=== PATIENT | female | born 1995 | race Caucasian/White ===

== ENCOUNTER 2019-05-11 02:05 | Emergency (ER) | payer OTHER ==
[2019-05-11 03:07] LABS: BLOOD UREA NITROGEN,BUN 10 mg/dL (7.0-18.0); CARBON DIOXIDE,CO2 27.6 mmol/L (21.0-32.0); CHLORIDE,CL 102 mmol/L (98-107); GLUCOSE RANDOM 109 mg/dL (74-106); POTASSIUM,K 3.4 mmol/L (3.5-5.1); SODIUM,NA 138 mmol/L (136-145)
--- NOTE | 2019-05-11 03:32 | EDM.PDOC ---
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 No history of IVF, denies history of STD or PID. No headaches, changes in vision or hearing, or nipple discharge. Patient had positive home test 3 days ago. Building Services Coordinator: None. M/S/F/SocHx notable for: please see HPI; remainder reviewed with patient and in chart. ROS: Negative constitutional, eye, cardiovascular, pulmonary, GI, , MSK, skin , neurologic, psychiatric, endocrine unless noted in the HPI. Exam HR 81, RR 17, BP 129/86, T 36.0C, SaO2 9 & room air. Gen: pleasant, nontoxic-appearing, resting comfortably in no discernible distress. HEENT: NC, AT, PEERL, EOMI. Resp: Clear to auscultation bilaterally, normal work of breathing, no accessory muscle usage. Card: Regular rate and rhythm with no murmurs, rubs, or gallops, extremities warm and well perfused. GI: Non-tender to palpation, no rebound tenderness or guarding, non-distended : no suprapubic tenderness to palpation, normal female external genitalia, vaginal canal visually normal without lesions, no bleeding or discharge, visually closed cervical os, no adnexal or fundal tenderness to palpation. No CMT. MSK: No visible deformities, strength and tone without visually appreciable deficit. Skin: Normal color with no visible lesions. Neuro: alert and oriented 3, no facial asymmetry, vision and hearing WNL. Psych: Mood and affect appropriate. Labs / Imaging (pertinent): WBC 11.02, HB 13.6, sodium 138, potassium 3.4, hCG 322. UA given negative nitrate, trace occult blood, few epithelial cells, few bacteria. Focused Ultrasound Indication: evaluation with abdominal cramping/pain. Views obtained: Transabdominal sagittal and transabdominal transverse. Findings: no visualized intrauterine , no free fluid. FAST Exam Indication: Evaluate for hemoperitoneum. Exam type: limited cardiac and limited abdomen; initial. Views obtained: Right upper quadrant, left upper quadrant, pelvis, and cardiac Abdomen Findings: Limited abdomen ultrasound without significant free intraperitoneal fluid found. Cardiac Findings: Limited cardiac ultrasound without pericardial effusion.] MDM Previous chart, nursing note, and vitals reviewed. A: 23-year-old at 4w2d gestation by LMP (04/11/19) presents for evaluation 2 days of suprapubic cramping is without vaginal discharge, discomfort, dysuria , urinary frequency, continues to take PO well an pass flatus and stool at baseline. DDx: Ectopic , threatened miscarriage, inevitable miscarriage, complete miscarriage, incomplete miscarriage, missed , vaginal/cervical lesion (including wart, trauma, tumor, ectropion, polyp). Evaluation: the cause of the of the patients cramping is of unclear etiology. The cramping may be due to a threatened a being, ectopic , mild enteritis, or other changes. However, the patients ECG is within appropriate limits for the calculate gestation age, the patient is hemodynamically stable, the discomfort is non-discernible on exam, there is no vaginal bleeding, no free fluid, and the ultrasound is without evidence of abnormality. UA is without evidence of infection, hemoglobin is within normal limits, and the patients vital signs are stable and within normal limits. Patient was recommended to take acetaminophen for discomfort and follow up with PCP and/or FLAT BED KNITTER within 48 hours. Return to care precautions provided. Impression: abdominal pain, first trimester . abdomen Pain Score (Numeric/FACES): 6 - Related Data Allergies Allergy/AdvReac Type Severity Reaction Status Date / Time morphine Allergy Hives Verified 05/11/19 02:25 Penicillins Allergy Hives Verified 05/11/19 02:25 Home Meds: Home Meds Sertraline [Zoloft] 100 mg PO DAILY 05/11/19 [History] Past Medical History HEENT History: Reports: None Genitourinary History: Reports: None - Infectious Disease History Infectious Disease History: Reports: Chicken Pox - Past Surgical History HEENT Surgical History: Reports: Adenoidectomy, Tonsillectomy Female Surgical History: Reports: Salpingo-Oophorectomy, Other (See Below) Other Female Surgeries/Procedures: R salphingooophorectomy Social & Family History - Family History Family Medical History: Noncontributory - Tobacco Use Smoking Status *Q: Never Smoker Second Hand Smoke Exposure: No - Caffeine Use Caffeine Use: Reports: Soda - Recreational Drug Use Recreational Drug Use: No ED ROS GENERAL - Review of Systems Review Of Systems: See Below ED EXAM, GENERAL - Physical Exam Exam: See Below Course - Vital Signs Last Recorded V/S: Last Vital Signs Temp 36.0 C 05/11/19 02:08 Pulse 81 05/11/19 02:08 Resp 17 05/11/19 02:08 BP 129/86 05/11/19 02:08 Pulse Ox 99 05/11/19 02:08 - Orders/Labs/Meds Orders: Active Orders 24 hr Category Date Time Status Pelvic Exam, Set Up [RC] ASDIRECTED Care 05/11/19 02:33 Active Labs: Laboratory Tests 05/11/19 05/11/19 05/11/19 Range/Units 02:18 02:35 02:35 WBC 11.02 H (4.0-11.0) K/uL RBC 4.63 (4.30-5.90) M/uL Hgb 13.6 (12.0-16.0) g/dL Hct 39.2 (36.0-46.0) % MCV 84.7 (80.0-98.0) fL MCH 29.4 (27.0-32.0) pg MCHC 34.7 (31.0-37.0) g/dL RDW Std Deviation 40.3 (28.0-62.0) fl RDW Coeff of Jose 13 (11.0-15.0) % Plt Count 329 (150-400) K/uL MPV 11.20 (7.40-12.00) fL Neut % (Auto) 52.4 (48.0-80.0) % Lymph % (Auto) 37.1 (16.0-40.0) % Parke % (Auto) 7.3 (0.0-15.0) % Eos % (Auto) 2.7 (0.0-7.0) % Baso % (Auto) 0.5 (0.0-1.5) % Neut # (Auto) 5.8 H (1.4-5.7) K/uL Lymph # (Auto) 4.1 H (0.6-2.4) K/uL Parke # (Auto) 0.8 (0.0-0.8) K/uL Eos # (Auto) 0.3 (0.0-0.7) K/uL Baso # (Auto) 0.1 (0.0-0.1) K/uL Nucleated RBC % 0.0 /100WBC Nucleated RBCs # 0 K/uL Sodium 138 (136-145) mmol/L Potassium 3.4 L (3.5-5.1) mmol/L Chloride 102 (98-107) mmol/L Carbon Dioxide 27.6 (21.0-32.0) mmol/L BUN 10 (7.0-18.0) mg/dL Creatinine 0.8 (0.6-1.0) mg/dL Est Cr Clr Drug Dosing 84.29 mL/min Estimated GFR (MDRD) > 60.0 ml/min Glucose 109 H (74-106) mg/dL Calcium 9.4 (8.5-10.1) mg/dL HCG, Quant 322.0 mIU/mL Urine Color YELLOW Urine Appearance SLT CLOUDY Urine pH 6.5 (5.0-8.0) Ur Specific [place] <= 1.005 (1.001-1.035) Urine Protein NEGATIVE (NEGATIVE) mg/dL Urine Glucose (UA) NEGATIVE (NEGATIVE) mg/dL Urine Ketones NEGATIVE (NEGATIVE) mg/dL Urine Occult Blood TRACE-LYSED H (NEGATIVE) Urine Nitrite NEGATIVE (NEGATIVE) Urine Bilirubin NEGATIVE (NEGATIVE) Urine Urobilinogen 0.2 (<2.0) EU/dL Ur Leukocyte Esterase SMALL H (NEGATIVE) Urine RBC 0-2 (0-2/HPF) Urine WBC 4-8 (0-5/HPF) Ur Epithelial Cells FEW (NONE-FEW) Urine Bacteria FEW (NEGATIVE) Departure - Departure Time of Disposition: 03:31 Disposition: Home, Self-Care 01 Clinical Impression: Abdominal pain - Discharge Information Referrals: PCP,Not In Area [Primary Care Provider] - Additional Instructions: You were in seen in the [facility] Emergency Department for evaluation of abdominal pain in the setting of . At the time of your evaluation no significant abnormalities were noted. The cause of your discomfort is currently unclear. There is a possibility that this may be due to your . If you have worsening pain, lightheadedness, shortness breath, or any further symptoms please return immediately to the emergency department. You may take acetaminophen as directed below for treatment of pain. Please read and follow all of the instructions below. Please follow up with your FLAT BED KNITTER or family medicine physician within 36 to 48 hours for repeat evaluation. During your emergency department evaluation your beta hCG was . Please return immediately if you have any of the following: * Worsening bleeding. * Lightheadedness, shortness of breath, dizziness, chest pain. * Worsening pain. * If you are otherwise concerned about your health. When calling for follow-up care, please make the office aware that this follow- up is from your recent emergency room visit. If for any reason you are refused follow-up, please contact the [facility] Emergency Department at and asked to speak to the emergency department charge nurse. Your care today was limited to identifying and treating emergent medical problems only. Many people have subtle differences in their test results that require follow up with their outpatient physician(s) to correctly determine if this represents a normal variation or concerning abnormality with respect to your specific health. The care given to you today was limited to identifying and treating emergent medical problems - you need to request a copy of all of your medical records from today's visit and follow up with your outpatient physician(s) to review both today's visit and your overall health. If you have any new symptoms or if you are at all concerned about your health please return immediately to the emergency department. Acetaminophen (Tylenol) Please take 1,000 mg every 6 hours as needed for pain. Do no use with alcohol or other acetaminophen containing medications. SIDE EFFECTS: This drug usually has no side effects. If you do not have liver problems, the maximum dose of acetaminophen for adults is 4 grams per day (4000 milligrams). Taking more than the maximum daily amount may cause serious ( possibly fatal) liver damage. Get medical help right away if you have any of the following symptoms of liver damage: persistent nausea/vomiting, extreme tiredness, stomach/abdominal pain, yellowing eyes/skin, dark urine. If you have liver problems, consult your doctor or pharmacist for a safe dosage of this medication. A very serious allergic reaction to this drug is rare. However, get medical help right away if you notice any symptoms of a serious allergic reaction, including: rash, itching/swelling (especially of the face/tongue/ throat), severe dizziness, trouble breathing. This is not a complete list of possible side effects. If you notice other effects not listed above, contact your doctor or pharmacist. Prescriptions: If you are uninsured or have financial difficulties with filling your prescription(s), you may consider using a free pharmacy discount service such as [employer] ([employer]) or [employer] ([employer]). These services allow you to search for a medication on your phone (or computer) and obtain a coupon that usually has a significant discount from the list vo at a pharmacy. Your physician as well as [facility] does not have a financial relationship with either of these services. You may also wish to speak with your physician to determine if lower cost prescriptions are possible. Obtaining primary care: 1. [facility] provides pediatrics (children), family medicine (children, adults, and some obstetrical care), and internal medicine (adults). Further specialty care is also available. Same day appointments are available. They may be contacted at [phone] and are open Saturday through Saturday 8 AM to [address] [facility] are located at [facility], [address] [place] [address]. 2. [facility] offers family medicine, internal medicine, [facility], and further specialty care. [facility] may be contacted at [phone]. [facility] is located at [address] [place] [address]. 3. If you have health insurance, please also contact your insurer for a list of accepting providers under your policy, you may contact these providers for further health care. Occupational health: Work related injuries may consider following up with [facility], . Occupational health services are located at [address] [place] [address] and are open Saturday through Saturday from 7: 30 am to 5:00 pm. Obstetrical and Gynecological Care: [facility], , Saturday through Saturday 8 AM to 5 PM. [address] [place] [address]. Eyecare: If you have an eye injury you should follow up with your dietitian or with [facility], at [phone] or [phone] , they are located at [address] [place] [id number]. Dental Care Thuan Kumari DDS. [address] [facility].[place], [place]. Ph. [phone] Balta Kumari DDS MS. [address] [facility] [address], [place], [place]. Ph. Jason Cardona DDS. 10 04/[address] [place] [address]. Ph. [phone] Win Nolan DDS. [address] [facility] 4 [place], [place]. Ph. [phone] Wisam Reed DDS PC. [address] [facility] [address] [place], [place]. Ph. Wandy Pereira DDS. [address] [facility]. Ph. [phone] [facility]. [address] [place], [place]. Ph. [phone] [facility]. [address] [place] [address], [place], [place]. Ph. [phone] [facility] [address] [place] [address]. Ph. [phone] [facility]. [address] [place] [address] [address] [place], [place]. Ph. [facility]. [address] [place], [place]. Ph. Sepsis Event Note - Evaluation Sepsis Screening Result: No Definite Risk - Focused Exam Vital Signs: Vital Signs Temp Pulse Resp BP Pulse Ox 05/11/19 02:08 36.0 C 81 17 129/86 99 Date Exam was Performed: 05/11/19 Time Exam was Performed: 03:31 - My Orders Last 24 Hours: My Active Orders 05/11/19 02:33 Pelvic Exam, Set Up [RC] ASDIRECTED - Assessment/Plan Last 24 Hours: My Active Orders 05/11/19 02:33 Pelvic Exam, Set Up [RC] ASDIRECTED
== END 2019-05-11 03:48 | disposition home or self-care (01) ==
LOC: MW.ED 02:05
DX: O99.89 Other specified diseases and conditions complicating pregnancy, childbirth and the puerperium (principal); R10.9 Unspecified abdominal pain; Z79.899 Other long term (current) drug therapy; Z88.5 Allergy status to narcotic agent; Z88.0 Allergy status to penicillin; Z3A.01 Less than 8 weeks gestation of pregnancy
CPT/HCPCS: 36415; 80048; 81001; 84702; 85025; 99282; 99283

== ENCOUNTER 2019-05-16 09:56 | Emergency (ER) | payer OTHER ==
--- NOTE | 2019-05-16 11:23 | EDM.PDOC ---
ED HPI GENERAL MEDICAL PROBLEM - General Chief Complaint: PULPER TENDER Problem Stated Complaint: ;BACK CRAMPS Time Seen by Provider: 05/16/19 10:53 Source of Information: Reports: Patient History Limitations: Reports: No Limitations - History of Present Illness INITIAL COMMENTS - FREE TEXT/NARRATIVE: HISTORY AND PHYSICAL: History of present illness: Patient is a 23-year-old female who presents to the ED today with concern of left-sided abdominal pain that radiates to her back in early . Patient states that she was seen here 5 days ago in the ER and at that time was also having some of the lower abdominal pain and cramping but states that since this visit it has worsened and now is radiating into her low back. Patient states she did have an ultrasound at that time which did not show any intra- uterine according to patient. Patient states that she is not from [place] so does not have an PULPER TENDER provider here but is going home soon to see her PULPER TENDER provider. Patient denies any vaginal bleeding or change in discharge. Patient denies any other symptoms or concerns. Patient denies fever, chills, chest pain, shortness of breath, or cough. Denies headache, neck stiff ness, change in vision, syncope, or near syncope. Denies nausea, vomiting, diarrhea, constipation, or dysuria. Has not noted any blood in urine or stool. Patient has been eating and drinking appropriately. Review of systems: As per history of present illness and below otherwise all systems reviewed and negative. Past medical history: As per history of present illness and as reviewed below otherwise noncontributory. Surgical history: As per history of present illness and as reviewed below otherwise noncontributory. Social history: See social history for further information Family history: As per history of present illness and as reviewed below otherwise noncontributory. Physical exam: General: Patient is alert, oriented, and in no acute distress. Patient sitting comfortably on exam table. HEENT: Atraumatic, normocephalic, pupils equal and reactive bilaterally, negative for conjunctival pallor or scleral icterus, mucous membranes moist, TMs normal bilaterally, throat clear, neck supple, nontender, trachea midline. No drooling or trismus noted. No meningeal signs. No hot potato voice noted. Lungs: Clear to auscultation, breath sounds equal bilaterally, chest nontender. Heart: S1S2, regular rate and rhythm without overt murmur Abdomen: Soft, nondistended, mild left lower abdominal tenderness without guarding and negative rebound, negative Morales sign. Negative for masses or hepatosplenomegaly. Negative for costovertebral tenderness. Pelvis: Stable nontender. Genitourinary: Deferred. Rectal: Deferred. Skin: Intact, warm, dry. No lesions or rashes noted. Extremities: Atraumatic, negative for cords or calf pain. Neurovascular unremarkable. Neuro: Awake, alert, oriented. Cranial nerves II through XII unremarkable. Cerebellum unremarkable. Motor and sensory unremarkable throughout. Exam nonfocal. Notes: Patient was seen in the ED on 05/11/2019 and at that time had a transabdominal ultrasound which at that time did not show an intrauterine and no free fluid. TVUS shows intrauterine at 4 weeks and 5 days. HCG quant rising appropriately today. Rh/Blood type--> A positive Discussed importance for establishing care with an PULPER TENDER provider. Voices understanding and is agreeable to plan of care. Denies any further questions or concerns at this time. Diagnostics: CBC, CMP, UA, urine culture, urine hCG, hCG quant, transvaginal ultrasound first trimester OB, Rh/blood type, lactate, blood culture x 2 Therapeutics: Tylenol Prescription: Keflex Impression: Urinary tract infection Lower abdominal pain in Plan: 1. Please start and/or continue to take your vitamin with folic acid once daily. 2. Pelvic rest until cleared by your OBGYN (no tampons, sex, etc...) Take medication as prescribed. 3. Tylenol as needed for pain management. This is safe to use in . 4. Follow up with your PULPER TENDER as discussed. Return to the ED as needed and as discussed. Definitive disposition and diagnosis as appropriate pending reevaluation and review of above. LLQ Pain Score (Numeric/FACES): 10 - Related Data Allergies Allergy/AdvReac Type Severity Reaction Status Date / Time morphine Allergy Hives Verified 05/16/19 10:23 Penicillins Allergy Hives Verified 05/16/19 10:23 Home Meds: Home Meds Sertraline [Zoloft] 100 mg PO DAILY 05/11/19 [History] cephALEXin [Keflex] 500 mg PO BID 7 Days #14 cap 02/15/20 [Rx] Past Medical History HEENT History: Reports: None Genitourinary History: Reports: None PULPER TENDER History: Reports: - Infectious Disease History Infectious Disease History: Reports: Chicken Pox - Past Surgical History HEENT Surgical History: Reports: Adenoidectomy, Tonsillectomy Female Surgical History: Reports: Salpingo-Oophorectomy, Other (See Below) Other Female Surgeries/Procedures: R salphingooophorectomy Social & Family History - Family History Family Medical History: Noncontributory - Caffeine Use Caffeine Use: Reports: Soda ED ROS GENERAL - Review of Systems Review Of Systems: Comprehensive ROS is negative, except as noted in HPI. ED EXAM, GENERAL - Physical Exam Exam: See Below (see dictation) Course - Vital Signs Last Recorded V/S: Last Vital Signs Temp 98.6 F 05/16/19 12:18 Pulse 75 05/16/19 12:18 Resp 18 05/16/19 12:18 BP 107/66 05/16/19 12:18 Pulse Ox 97 05/16/19 12:18 - Orders/Labs/Meds Orders: Active Orders 24 hr Category Date Time Status CULTURE BLOOD [BC] Stat Lab 05/16/19 12:48 Received CULTURE BLOOD [BC] Stat Lab 05/16/19 12:51 Received CULTURE URINE [RM] Stat Lab 05/16/19 10:51 Received Blood Culture x2 Reflex Set [OM.PC] Stat Oth 05/16/19 12:38 Ordered Labs: Laboratory Tests 05/16/19 05/16/19 05/16/19 Range/Units 10:51 10:51 11:11 WBC 15.29 H (4.0-11.0) K/uL RBC 4.13 L (4.30-5.90) M/uL Hgb 12.0 (12.0-16.0) g/dL Hct 35.2 L (36.0-46.0) % MCV 85.2 (80.0-98.0) fL MCH 29.1 (27.0-32.0) pg MCHC 34.1 (31.0-37.0) g/dL RDW Std Deviation 41.5 (28.0-62.0) fl RDW Coeff of Jose 13 (11.0-15.0) % Plt Count 217 (150-400) K/uL MPV 11.00 (7.40-12.00) fL Neut % (Auto) 87.7 H (48.0-80.0) % Lymph % (Auto) 6.1 L (16.0-40.0) % Barton % (Auto) 5.8 (0.0-15.0) % Eos % (Auto) 0.3 (0.0-7.0) % Baso % (Auto) 0.1 (0.0-1.5) % Neut # (Auto) 13.4 H (1.4-5.7) K/uL Lymph # (Auto) 0.9 (0.6-2.4) K/uL Barton # (Auto) 0.9 H (0.0-0.8) K/uL Eos # (Auto) 0.0 (0.0-0.7) K/uL Baso # (Auto) 0.0 (0.0-0.1) K/uL Nucleated RBC % 0.0 /100WBC Nucleated RBCs # 0 K/uL Lactate (0.20-2.00) mmol/L Sodium (136-145) mmol/L Potassium (3.5-5.1) mmol/L Chloride (98-107) mmol/L Carbon Dioxide (21.0-32.0) mmol/L BUN (7.0-18.0) mg/dL Creatinine (0.6-1.0) mg/dL Est Cr Clr Drug Dosing mL/min Estimated GFR (MDRD) ml/min Glucose (74-106) mg/dL Calcium (8.5-10.1) mg/dL Total Bilirubin (0.2-1.0) mg/dL AST (15-37) IU/L ALT (14-63) IU/L Alkaline Phosphatase (46-116) U/L Total Protein (6.4-8.2) g/dL Albumin (3.4-5.0) g/dL Globulin (2.6-4.0) g/dL Albumin/Globulin Ratio (0.9-1.6) HCG, Quant mIU/mL Urine Color YELLOW Urine Appearance HAZY Urine pH 6.0 (5.0-8.0) Ur Specific [place] >= 1.030 (1.001-1.035) Urine Protein 30 H (NEGATIVE) mg/dL Urine Glucose (UA) NEGATIVE (NEGATIVE) mg/dL Urine Ketones 40 H (NEGATIVE) mg/dL Urine Occult Blood NEGATIVE (NEGATIVE) Urine Nitrite POSITIVE H (NEGATIVE) Urine Bilirubin NEGATIVE (NEGATIVE) Urine Urobilinogen 0.2 (<2.0) EU/dL Ur Leukocyte Esterase SMALL H (NEGATIVE) Urine RBC 2-5 (0-2/HPF) Urine WBC 50-60 (0-5/HPF) Ur Epithelial Cells MODERATE (NONE-FEW) Urine Bacteria 2+ H (NEGATIVE) Urine Mucus LIGHT (NONE-MOD) Urine HCG, Qual POSITIVE (NEGATIVE) Blood Type 05/16/19 05/16/19 05/16/19 Range/Units 11:11 11:11 12:53 WBC (4.0-11.0) K/uL RBC (4.30-5.90) M/uL Hgb (12.0-16.0) g/dL Hct (36.0-46.0) % MCV (80.0-98.0) fL MCH (27.0-32.0) pg MCHC (31.0-37.0) g/dL RDW Std Deviation (28.0-62.0) fl RDW Coeff of Jose (11.0-15.0) % Plt Count (150-400) K/uL MPV (7.40-12.00) fL Neut % (Auto) (48.0-80.0) % Lymph % (Auto) (16.0-40.0) % Barton % (Auto) (0.0-15.0) % Eos % (Auto) (0.0-7.0) % Baso % (Auto) (0.0-1.5) % Neut # (Auto) (1.4-5.7) K/uL Lymph # (Auto) (0.6-2.4) K/uL Barton # (Auto) (0.0-0.8) K/uL Eos # (Auto) (0.0-0.7) K/uL Baso # (Auto) (0.0-0.1) K/uL Nucleated RBC % /100WBC Nucleated RBCs # K/uL Lactate 0.6 (0.20-2.00) mmol/L Sodium 141 (136-145) mmol/L Potassium 4.2 (3.5-5.1) mmol/L Chloride 104 (98-107) mmol/L Carbon Dioxide 25.2 (21.0-32.0) mmol/L BUN 9 (7.0-18.0) mg/dL Creatinine 0.8 (0.6-1.0) mg/dL Est Cr Clr Drug Dosing 83.64 mL/min Estimated GFR (MDRD) > 60.0 ml/min Glucose 100 (74-106) mg/dL Calcium 8.9 (8.5-10.1) mg/dL Total Bilirubin 1.6 H (0.2-1.0) mg/dL AST 13 L (15-37) IU/L ALT 14 (14-63) IU/L Alkaline Phosphatase 68 (46-116) U/L Total Protein 7.1 (6.4-8.2) g/dL Albumin 3.9 (3.4-5.0) g/dL Globulin 3.2 (2.6-4.0) g/dL Albumin/Globulin Ratio 1.2 (0.9-1.6) HCG, Quant 3336.0 mIU/mL Urine Color Urine Appearance Urine pH (5.0-8.0) Ur Specific [place] (1.001-1.035) Urine Protein (NEGATIVE) mg/dL Urine Glucose (UA) (NEGATIVE) mg/dL Urine Ketones (NEGATIVE) mg/dL Urine Occult Blood (NEGATIVE) Urine Nitrite (NEGATIVE) Urine Bilirubin (NEGATIVE) Urine Urobilinogen (<2.0) EU/dL Ur Leukocyte Esterase (NEGATIVE) Urine RBC (0-2/HPF) Urine WBC (0-5/HPF) Ur Epithelial Cells (NONE-FEW) Urine Bacteria (NEGATIVE) Urine Mucus (NONE-MOD) Urine HCG, Qual (NEGATIVE) Blood Type A POSITIVE Meds: Medications Discontinued Medications Generic Name Dose Route Start Last Admin Trade Name Freq PRN Reason Stop Dose Admin Acetaminophen 1,000 mg 05/16/19 12:19 05/16/19 12:28 Tylenol Extra Strength PO 05/16/19 12:20 1,000 mg ONETIME ONE Administration Departure - Departure Time of Disposition: 13:10 Disposition: Home, Self-Care 01 Clinical Impression: Left lower quadrant abdominal pain affecting Urinary tract infection Qualifiers: Urinary tract infection type: acute cystitis Hematuria presence: without hematuria Qualified Code(s): N30.00 - Acute cystitis without hematuria - Discharge Information Prescriptions: cephALEXin [Keflex] 500 mg PO BID 7 Days #14 cap Instructions: First Trimester of , [id number], Abdominal Pain, Adult , [id number], Urinary Tract Infection, Adult Referrals: PCP,Not In Area [Primary Care Provider] - Forms: ED Department Discharge Additional Instructions: The following information is given to patients seen in the emergency department who are being discharged to home. This information is to outline your options for follow-up care. We provide all patients seen in our emergency department with a follow-up referral. The need for follow-up, as well as the timing and circumstances, are variable depending upon the specifics of your emergency department visit. If you don't have a primary care physician on staff, we will provide you with a referral. We always advise you to contact your personal physician following an emergency department visit to inform them of the circumstance of the visit and for follow-up with them and/or the need for any referrals to a consulting specialist. The emergency department will also refer you to a specialist when appropriate. This referral assures that you have the opportunity for follow-up care with a specialist. All of these measure are taken in an effort to provide you with optimal care, which includes your follow-up. Under all circumstances we always encourage you to contact your private physician who remains a resource for coordinating your care. When calling for follow-up care, please make the office aware that this follow-up is from your recent emergency room visit. If for any reason you are refused follow-up, please contact the [facility] Emergency Department at and asked to speak to the emergency department charge nurse. [facility] [address], [place] [address] [facility] [address] [place] [id number] [facility] [address] [place] [address] 1. Please start and/or continue to take your vitamin with folic acid once daily. 2. Pelvic rest until cleared by your OBGYN (no tampons, sex, etc...) Take medication as prescribed. 3. Tylenol as needed for pain management. This is safe to use in . 4. Follow up with your PULPER TENDER as discussed. Return to the ED as needed and as discussed. Sepsis Event Note - Evaluation Sepsis Screening Result: No Definite Risk - Focused Exam Vital Signs: Vital Signs Temp Pulse Resp BP Pulse Ox 05/16/19 12:18 98.6 F 75 18 107/66 97 05/16/19 10:24 98 F 127 H 16 131/83 98 Date Exam was Performed: 05/16/19 Time Exam was Performed: 13:30 - My Orders Last 24 Hours: My Active Orders 05/16/19 10:51 CULTURE URINE [RM] Stat 05/16/19 12:38 Blood Culture x2 Reflex Set [OM.PC] Stat 05/16/19 12:48 CULTURE BLOOD [BC] Stat 05/16/19 12:51 CULTURE BLOOD [BC] Stat - Assessment/Plan Last 24 Hours: My Active Orders 05/16/19 10:51 CULTURE URINE [RM] Stat 05/16/19 12:38 Blood Culture x2 Reflex Set [OM.PC] Stat 05/16/19 12:48 CULTURE BLOOD [BC] Stat 05/16/19 12:51 CULTURE BLOOD [BC] Stat
[2019-05-16 12:09] LABS: BLOOD UREA NITROGEN,BUN 9 mg/dL (7.0-18.0); CARBON DIOXIDE,CO2 25.2 mmol/L (21.0-32.0); CHLORIDE,CL 104 mmol/L (98-107); GLUCOSE RANDOM 100 mg/dL (74-106); POTASSIUM,K 4.2 mmol/L (3.5-5.1); SODIUM,NA 141 mmol/L (136-145)
[2019-05-16] MEDS ORDERED: Acetaminophen 500 MG Tab PO ONE (12:19)
--- NOTE | 2019-05-16 12:47 | US ---
1st trimester obstetrical ultrasound: Multiple real-time images were obtained transvaginally. Comparison: No previous study for current . Dates: Current ultrasound: EVELIN 01/18/20, gestational age 4 weeks 5 days Single intrauterine gestational sac is seen. No pole or yolk sac is seen at this time. Maternal ovaries appear within normal limits. Measurements: Mean sac diameter: 0.31 cm - 4 weeks 5 days Impression: 1. Single intrauterine gestational sac. No yolk sac or pole is seen at this time most likely relating to early gestational age. 2. No complicating process is seen by ultrasound at this time. Note: If normal developing needs to be confirmed, follow-up study in 11-14 days would be helpful. Diagnostic code #1 This report was dictated in [place] Standard Time
== END 2019-05-16 13:24 | disposition home or self-care (01) ==
LOC: MW.ED 09:56
DX: O23.11 Infections of bladder in pregnancy, first trimester (principal); Z88.5 Allergy status to narcotic agent; Z88.0 Allergy status to penicillin; Z79.899 Other long term (current) drug therapy; Z3A.01 Less than 8 weeks gestation of pregnancy
CPT/HCPCS: 36415; 76801; 80053; 81001; 81025; 83605; 84702; 85025; 86900; 86901; 87040; 87086; 87088; 87186; 99284; A9270